=== PATIENT | female | born 1945 | race Caucasian/White ===

== ENCOUNTER 2017-11-20 17:35 | Observation (INO) | payer OTHER ==
[2017-11-20] MEDS ORDERED: ASPIRIN 81 MG CHEWABLE TABLET ONE (18:16)
[2017-11-20 18:33] LABS: Absolute Lymphocytes (CBC) 2.4 K/uL (0.7-4.9); Absolute Monocytes 0.5 K/uL (0.1-1.3); Absolute Neutrophil 2.7 K/uL (1.8-8.0); Basophils % 0.9 % (0-1.3); Eosinophils % 1.2 % (0-4.4); Hematocrit 41.8 % (36.0-45.0); Lymphocytes % 42.4 % (15.3-44.8); MCH 32.6 pg (27.0-35.0); MCV 95.3 fL (80-100); MPV 10.1 fL (7.6-11.3); RBC Red Blood Cell Count 4.38 M/uL (3.86-4.86)
[2017-11-20 18:37] LABS: Protime INR 0.96
--- NOTE | 2017-11-20 18:45 | RAD REPORT ---
EXAM DESCRIPTION: RAD - Chest Single View - 11/20/2017 6:21 pm CLINICAL HISTORY: Chest pain, shortness of breath COMPARISON: August 2014 TECHNIQUE: AP portable chest image was obtained 1808 hours . FINDINGS: No peripheral mass, consolidation or failure finding. Chronic interstitial lung disease is present not substantially different from the comparison. Heart and vasculature are normal. No measur able pleural effusion and no pneumothorax. No gross bony abnormality seen. No acute aortic findings s uspected. IMPRESSION: No acute cardiopulmonary process. Chronic interstitial lung disease is present similar to comparison.
[2017-11-20 18:54] LABS: ALT/SGPT 36 U/L (12-78); AST/SGOT 32 U/L (15-37); Albumin 3.3 g/dL (3.4-5.0); Alkaline Phosphatase 80 U/L (45-117); BUN Blood Urea Nitrogen 22 mg/dL (7-18); Bicarbonate 30 mmol/L (21-32); Bilirubin Direct 0.1 mg/dL (0-0.2); Bilirubin Total 0.4 mg/dL (0.2-1.0); CKMB Creatine Kinase MB < 1.0 ng/mL (0.3-3.6); Creatine Phosphokinase 28 U/L (26-192); Glucose Level 94 mg/dL (74-106); Magnesium 2.2 mg/dL (1.8-2.4); NT PRO-BNP 734 pg/mL (<125); Potassium 4.5 mmol/L (3.5-5.1); Protein, Total 6.8 g/dL (6.4-8.2); Sodium Level 140 mmol/L (136-145); Troponin (Emerg Dept Use Only) < 0.02 ng/mL (0.0-0.045)
--- NOTE | 2017-11-20 19:10 | EKG ---
Test Date: 2017-11-20 Test Time: 17:50:02 User Interface Designer: CLIVE MEASUREMENT RESULTS: Intervals: Rate: 54 OK: 96 QRSD: 74 QT: 418 QTc: 396 Wilmore: P: -19 OK: 96 QRS: -5 T: 22 INTERPRETIVE STATEMENTS: Sinus bradycardia with short OK Otherwise normal ECG Compared to ECG 08/14/2014 12:25:15 Short OK interval now present Sinus rhythm no longer present Electronically Signed On 11-20-17 19:09:37 CDT by Tho Joseph
--- NOTE | 2017-11-20 19:29 | ER ---
Nurse's Notes [facility] Name: Caitlin Howard Age: 72 yrs Sex: Female : 1945 Arrival Date: 11/20/2017 Time: 17:37 Bed 6 Private MD: LIZ CARBAJAL Diagnosis: Chest pain, unspecified;Dyspnea Presentation: 11/20 17:42 Presenting complaint: Patient states: midsternal CP that started with the SOB. sv states: pt c/o SOB around 1300 today and was having hypotension at home. c/o lethargy. Transition of care: patient was not received from another setting of care. Onset of symptoms was November 20, 2017 at 13:00. Care prior to arrival: None. 17:42 Method Of Arrival: Ambulatory sv 17:42 Acuity: STEPHIE 3 sv 20:55 Risk Assessment: Do you want to hurt yourself or someone else? Patient reports no fc desire to harm self or others. Initial Sepsis Screen: Does the patient meet any 2 criteria? No. Patient's initial sepsis screen is negative. Does the patient have a suspected source of infection? No. Patient's initial sepsis screen is negative. 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 - Social history:: Smoking status: Patient/guardian denies using tobacco. - Ebola Screening: : No symptoms or risks identified at this time. Screenin:47 Abuse screen: Denies threats or abuse. Denies injuries from another. Nutritional hb screening: No deficits noted. Tuberculosis screening: No symptoms or risk factors identified. Fall Risk None identified. Assessment: 18:25 General: Appears in no apparent distress. Behavior is calm, cooperative. Pain: hb Complains of pain in chest Pain does not radiate. Pain currently is 3 out of 10 on a pain scale. Quality of pain is described as pressure. Neuro: Level of Consciousness is awake, alert, obeys commands, Oriented to person, place, time, situation. Cardiovascular: Heart tones S1 S2 present Capillary refill < 3 seconds Patient's skin is warm and dry. Rhythm is regular. Respiratory: Airway is patent Trachea midline Respiratory effort is even, unlabored, Respiratory pattern is regular, symmetrical, Breath sounds are clear bilaterally. GI: No signs and/or symptoms were reported involving the gastrointestinal system. : No signs and/or symptoms were reported regarding the genitourinary system. EENT: No signs and/or symptoms were reported regarding the EENT system. Derm: No signs and/or symptoms reported regarding the dermatologic system. Skin is intact, is healthy with good turgor. Musculoskeletal: No signs and/or symptoms reported regarding the musculoskeletal system. 19:00 General: Appears in no apparent distress. comfortable, Behavior is calm, cooperative, fc appropriate for age. Pain: Denies pain. Neuro: Level of Consciousness is awake, alert, obeys commands, Oriented to person, place, time, situation. Cardiovascular: Denies chest pain at this time Heart tones S1 S2 Capillary refill < 3 seconds Rhythm is regular. Respiratory: Airway is patent Respiratory effort is even, unlabored, Respiratory pattern is regular, symmetrical, Breath sounds are clear bilaterally. GI: No deficits noted. : No deficits noted. EENT: No deficits noted. Derm: Skin is pink, warm \T\ dry. Musculoskeletal: Circulation, motion, and sensation intact. Capillary refill < 3 seconds, Range of motion: intact in all extremities. 19:25 Reassessment: Darleen AMOR in to see and discuss admission with pt. fc 20:30 Reassessment: No changes from previously documented assessment. Patient and/or family fc updated on plan of care and expected duration. Pain level reassessed. Patient is alert, oriented x 3, equal unlabored respirations, skin warm/dry/pink. Pt is pending admission to 2nd floor. 21:30 Reassessment: No changes from previously documented assessment. Patient and/or family fc updated on plan of care and expected duration. Pain level reassessed. Patient is alert, oriented x 3, equal unlabored respirations, skin warm/dry/pink. Pt with no overall change in condition. 21:55 Reassessment: report called to 2nd floor. fc Vital Signs: 17:43 BP 161 / 72; Pulse 55; Resp 18; Temp 98.3; Pulse Ox 100% ; Weight 52.62 kg; Height 5 sv ft. 4 in. (162.56 cm); 19:00 BP 159 / 72; Pulse 52; Resp 20; Pulse Ox 100% on R/A; Pain 0/10; fc 20:00 BP 161 / 71; Pulse 52; Resp 16; Pulse Ox 100% on R/A; Pain 0/10; fc 20:45 BP 151 / 68; Pulse 53; Resp 16; Pulse Ox 97% on R/A; Pain 0/10; fc 21:54 BP 160 / 80; Pulse 54; Resp 16; Temp 98.2(O); Pulse Ox 100% on R/A; Pain 0/10; fc 17:43 Body Mass Index 19.91 (52.62 kg, 162.56 cm) sv ED Course: 17:37 Patient arrived in ED. sb2 17:37 LIZ CARBAJAL is Private Physician. sb2 17:42 Triage completed. sv 17:44 Arm band placed on left wrist. sv 17:54 [facility]uel[facility]C [facility] kb 17:54 Jonel Barahona MD is Attending Physician. kb 18:05 EKG done, by earth moving technician. reviewed by Jonel Barahona MD. 3 18:18 X-ray completed. Portable x-ray completed in exam room. Patient tolerated procedure ml well. 18:19 XRAY Chest (1 view) In Process Unspecified. EDMS 18:25 Dorie Kim RN is Primary Nurse. hb 18:25 Patient has correct armband on for positive identification. Placed in gown. Bed in low hb position. Call light in reach. Side rails up X 1. 18:25 Inserted saline lock: 22 gauge in left antecubital area, using aseptic technique. Blood hb collected. 19:28 Jonel Juárez MD is Hospitalizing Provider. kb 20:18 Primary Nurse role handed off by Dorie Kim, RN rg2 20:54 No provider procedures requiring assistance completed. Patient admitted, IV remains in fc place. Administered Medications: 18:27 Drug: Aspirin Chewable Tablet 324 mg Route: PO; hb 20:57 Follow up: Response: No adverse reaction; No change in condition fc Outcome: 19:28 Decision to Hospitalize by Provider. kb 20:55 Condition: good fc 20:55 Discharge instructions given to patient, significant other, Instructed on the need for admit, Demonstrated understanding of instructions. 21:56 Admitted to Tele accompanied by tech, room 225, with chart, Report called to Lorrie Irene fc 22:11 Patient left the ED. fc Signatures: Dispatcher [employer] EDDarleen Shea, OXANA-Chanda TECHNICIAN HELPER INSTRUMENT-Merlin Melchor rg2 Yoly Orourke RN RN sv Chretien, Felicia, RN RN fc Lopez, Melissa ml Baxter, Heather, RN RN Pooja Zamudio 2 Andree Webster sm3 Corrections: (The following items were deleted from the chart) 17:44 17:42 Presenting complaint: states: pt c/o SOB around 1300 today and was having sv hypotension at home. c/o lethargy. sv
--- NOTE | 2017-11-20 19:29 | EDPHYS ---
Physician Documentation [facility] Name: Caitlin Howard Age: 72 yrs Sex: Female : 1945 Arrival Date: 11/20/2017 Time: 17:37 Bed 6 Private MD: LIZ CARBAJAL ED Physician Jonel Barahona HPI: 11/20 19:08 This 72 yrs old Female presents to ER via Ambulatory with complaints of Blood kb Pressure Problem - LOW, Shortness Of Breath. 19:08 The patient or guardian reports chest pain that is located primarily in the anterior kb chest wall, left. Onset: yesterday. The pain does not radiate. Associated signs and symptoms: Pertinent positives: shortness of breath, Pertinent negatives: abdominal pain, cough, diaphoresis, dizziness, headache, lower extremity pain, lower extremity swelling, lightheadedness, nausea, near syncope, palpitations, recent travel, syncope, vomiting. The chest pain is described as a pressure. Duration: The patient or guardian reports a single episode, that is now resolved. Modifying factors: The symptoms are alleviated by nothing. the symptoms are aggravated by nothing. Severity of pain: At its worst the pain was mild moderate in the emergency department the pain has resolved. The patient has not experienced similar symptoms in the past. The patient has not recently seen a physician. Pt reports she had chest pain, shortness of breath and just not feeling well earlier today. started checking BP and it was running 70s/40s. Started coming up prior to arrival. Dr Carbajal is out of town, but his nurse told them to come to ER for evaluation. Pt reports chest pain and shortness of breath have resolved.. 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 - Social history:: Smoking status: Patient/guardian denies using tobacco. - Ebola Screening: : No symptoms or risks identified at this time. ROS: 19:07 Constitutional: Negative for fever, chills, and weight loss, Abdomen/GI: Negative for kb abdominal pain, nausea, vomiting, diarrhea, and constipation, Back: Negative for injury and pain, : Negative for injury, bleeding, discharge, and swelling, MS/Extremity: Negative for injury and deformity, Skin: Negative for injury, rash, and discoloration, Neuro: Negative for headache, weakness, numbness, tingling, and seizure. 19:07 Cardiovascular: Positive for chest pain, Negative for edema, orthopnea, palpitations, paroxysmal nocturnal dyspnea. 19:07 Respiratory: Positive for shortness of breath, Negative for cough, dyspnea on exertion, hemoptysis, orthopnea, pleurisy, sputum production, wheezing. Exam: 19:07 Constitutional: This is a well developed, well nourished patient who is awake, alert, kb and in no acute distress. Head/Face: Normocephalic, atraumatic. Chest/axilla: Normal chest wall appearance and motion. Nontender with no deformity. No lesions are appreciated. Cardiovascular: Regular rate and rhythm with a normal S1 and S2. No gallops, murmurs, or rubs. Normal PMI, no JVD. No pulse deficits. Respiratory: Lungs have equal breath sounds bilaterally, clear to auscultation and percussion. No rales, rhonchi or wheezes noted. No increased work of breathing, no retractions or nasal flaring. Abdomen/GI: Soft, non-tender, with normal bowel sounds. No distension or tympany. No guarding or rebound. No evidence of tenderness throughout. Back: No spinal tenderness. No costovertebral tenderness. Full range of motion. Skin: Warm, dry with normal turgor. Normal color with no rashes, no lesions, and no evidence of cellulitis. MS/ Extremity: Pulses equal, no cyanosis. Neurovascular intact. Full, normal range of motion. Neuro: Awake and alert, GCS 15, oriented to person, place, time, and situation. Cranial nerves II-XII grossly intact. Motor strength 5/5 in all extremities. Sensory grossly intact. Cerebellar exam normal. Normal gait. Vital Signs: 17:43 BP 161 / 72; Pulse 55; Resp 18; Temp 98.3; Pulse Ox 100% ; Weight 52.62 kg; Height 5 sv ft. 4 in. (162.56 cm); 19:00 BP 159 / 72; Pulse 52; Resp 20; Pulse Ox 100% on R/A; Pain 0/10; fc 20:00 BP 161 / 71; Pulse 52; Resp 16; Pulse Ox 100% on R/A; Pain 0/10; fc 20:45 BP 151 / 68; Pulse 53; Resp 16; Pulse Ox 97% on R/A; Pain 0/10; fc 21:54 BP 160 / 80; Pulse 54; Resp 16; Temp 98.2(O); Pulse Ox 100% on R/A; Pain 0/10; fc 17:43 Body Mass Index 19.91 (52.62 kg, 162.56 cm) sv MDM: 17:54 Patient medically screened. kb 19:07 The patient was given aspirin in the Emergency Department. Data reviewed: vital signs, kb nurses notes. Data interpreted: Pulse oximetry: on room air is 100 %. Interpretation: normal. 19:28 Counseling: I had a detailed discussion with the patient and/or guardian regarding: the kb historical points, exam findings, and any diagnostic results supporting the discharge/admit diagnosis, lab results, radiology results, the need for further work-up and treatment in the hospital. 11/20 17:59 Order name: Basic Metabolic Panel; Complete Time: 18:58 kb 11/20 17:59 Order name: CBC with Diff; Complete Time: 18:37 kb 11/20 17:59 Order name: Ckmb; Complete Time: 18:58 kb 11/20 17:59 Order name: CPK; Complete Time: 18:58 kb 11/20 17:59 Order name: LFT's; Complete Time: 18:58 kb 11/20 17:59 Order name: Magnesium; Complete Time: 18:58 kb 11/20 17:59 Order name: NT PRO-BNP; Complete Time: 18:58 kb 11/20 17:59 Order name: PT-INR; Complete Time: 18:44 kb 11/20 17:59 Order name: Ptt, Activated; Complete Time: 18:44 kb 11/20 17:59 Order name: Troponin (emerg Dept Use Only); Complete Time: 18:58 kb 11/20 17:59 Order name: XRAY Chest (1 view); Complete Time: 18:49 kb 11/20 17:59 Order name: EKG; Complete Time: 17:59 kb 12 19:52 Order name: Urine Dipstick--Ancillary (enter results); Complete Time: 20:07 mt 11/20 17:59 Order name: Cardiac monitoring; Complete Time: 18:07 kb 11/20 17:59 Order name: EKG - Nurse/Tech; Complete Time: 18:07 kb 11/20 17:59 Order name: IV Saline Lock; Complete Time: 18:08 kb 11/20 17:59 Order name: Labs collected and sent; Complete Time: 18:08 kb 11/20 17:59 Order name: O2 Per Protocol; Complete Time: 18:08 kb 11/20 17:59 Order name: O2 Sat Monitoring; Complete Time: 18:08 kb 11/20 17:59 Order name: Urine Dipstick-Ancillary (obtain specimen); Complete Time: 20:43 kb 11/20 19:22 Order name: Vital Signs; Complete Time: 20:43 kb Administered Medications: 18:27 Drug: Aspirin Chewable Tablet 324 mg Route: PO; hb 20:57 Follow up: Response: No adverse reaction; No change in condition fc Disposition: 11/20/17 19:28 Hospitalization ordered by Jonel Juárez for Observation. Preliminary diagnosis are Chest pain, unspecified, Dyspnea. - Bed requested for Telemetry/MedSurg (observation). - Status is Observation. fc - Condition is Stable. - Problem is new. - Symptoms have improved. UTI on Admission? No Addendum: 11/24/2017 18:21 Co-signature as Attending Physician, Jonel Barahona MD. m a2 Signatures: Dispatcher [employer] EDDarleen Shea, INTERLIBRARY LOAN SERVICES LIBRARIAN-C INTERLIBRARY LOAN SERVICES LIBRARIAN-Yoly Lala RN Malgorzata Whalen RN RN dw Chretien, Felicia, RN RN Dorie Kim RN RN Jonel Barahona MD MD in2 Corrections: (The following items were deleted from the chart) 11/20 19:36 19:28 Hospitalization Ordered by Jonel Juárez MD for Observation. Preliminary dw diagnosis is Chest pain, unspecified; Dyspnea. Bed requested for Telemetry/MedSurg (observation). Status is Observation. Condition is Stable. Problem is new. Symptoms have improved. UTI on Admission? No. kb 22:11 19:36 11/20/2017 19:28 Hospitalization Ordered by Jonel Juárez MD for Observation. fc Preliminary diagnosis is Chest pain, unspecified; Dyspnea. Bed requested for Telemetry/MedSurg (observation). Status is Observation. Condition is Stable. Problem is new. Symptoms have improved. UTI on Admission? No. dw
[2017-11-20 20:06] LABS: Urine Blood NEGATIVE (NEG); Urine Glucose NEGATIVE (NEG); Urine Protein NEGATIVE (NEG); Urine pH 8.5 (5.0-7.0)
[2017-11-20] MEDS ORDERED: MORPHINE 4 MG/ML SYR IV PRN (21:22)
[2017-11-20] MEDS ORDERED: ACETAMINOPHEN 500 MG TAB PO PRN (21:22)
[2017-11-20] MEDS ORDERED: ALPRAZOLAM 0.25 MG TABLET PO PRN (21:22)
[2017-11-20 22:32] VITALS: BMI 18.8
[2017-11-21 03:33] VITALS: O2SAT 99
--- NOTE | 2017-11-21 05:09 | P.HP ---
Certification for Inpatient Patient admitted to: Observation With expected LOS: <2 Midnights Patient will require the following post-hospital care: None Practitioner: I am a practitioner with admitting privileges, knowledge of patient current condition, hospital course, and medical plan of care. Services: Services provided to patient in accordance with Admission requirements found in Title 42 Section 412.3 of the Code of Federal Regulations Patient History Date of Service: 11/20/17 Reason for admission: Chest pain rule out acute coronary syndrome History of Present Illness: Patient is a 72-year-old female came into the hospital with complaints of hypotension. Patient was also short of breath. Patient complaining of pain in the anterior side of the chest: No radiation of the chest pain. Patient also has some shortness of breath associated with this symptom. Patient's symptoms have pretty much resolved by the time patient came into the emergency room. Patient has been treated for a meningioma recently, but the surgery had to be stopped because patient became severely bradycardic. The surgery was aborted, but patient has continued to do well. Patient does have headaches but otherwise no other significant symptoms. Patient respiratory status is stable. Patient came into the emergency room for further evaluation. Allergies codeine [Codeine] Allergy (Unknown, Verified 11/20/17 20:41) Unknown Sulfa (Sulfonamide Antibiotics) Allergy (Unknown, Verified 11/20/17 20:41) Unknown Wasps Allergy (Uncoded 11/20/17 20:41) Unknown Home Medications: Atenolol [Tenormin] 25 mg PO DAILY 11/20/17 Cholecalciferol (Vitamin D3) [Vitamin D3] 5,000 unit PO DAILY 11/20/17 Divalproex Sodium [Depakote ER] 500 mg PO TID 11/20/17 Magnesium Oxide [Magnesium] 250 mg PO DAILY 11/20/17 Memantine HCl 10 mg PO BID 11/20/17 Thyroid,Pork [Assignment Editor Thyroid] 15 mg PO DAILY 11/20/17 Tizanidine HCl 4 mg PO Q6HP PRN 11/20/17 Tramadol HCl [Ultram] 100 mg PO BEDTIME 11/20/17 Trazodone HCl 12.5 mg PO BEDTIME 11/20/17 Turmeric Root Extract [Turmeric] 500 mg PO DAILY 11/20/17 - Past Medical/Surgical History Has patient received pneumonia vaccine in the past: Yes Diabetic: No -: brain tumor - beign -: hypothyroid -: hypertension -: headaches -: sinus problems -: Throat Surgery -: Back Surgery -: ngoc -: attempted brain tumor removal without success - Family History Father Medical History: Heart disease Sister Medical History: Heart disease Brother Medical History: Lung disease, Cancer, Kidney disease - Social History Smoking Status: Never smoker Alcohol use: No CD- Drugs: No Caffeine use: No Place of Residence: Home Review of Systems 10-point ROS is otherwise unremarkable Physical Examination - Vital Signs Temperature: 96.8 F Blood Pressure: 167/74 Pulse: 64 Respirations: 18 Pulse Ox (%): 100 - Physical Exam General: Alert, In no apparent distress, Oriented x3 HEENT: Atraumatic, PERRLA, Mucous membr. moist/pink, EOMI, Sclerae nonicteric Neck: Supple, 2+ carotid pulse no bruit, No LAD, Without JVD or thyroid abnormality Respiratory: Clear to auscultation bilaterally, Normal air movement Cardiovascular: Regular rate/rhythm, Normal S1 S2, No murmurs Gastrointestinal: Normal bowel sounds, Soft and benign, Non-distended, No tenderness Musculoskeletal: No clubbing, No swelling, No tenderness Integumentary: No rashes Neurological: Normal gait, Normal speech, Normal strength at 5/5 x4 extr, Normal tone, Sensation intact, Cranial nerves 3-12 intact, Normal affect Lymphatics: No axilla or inguinal lymphadenopathy - Studies Laboratory Data (last 24 hrs) 11/20/17 18:20: PT 11.3, INR 0.96, APTT 30.3 18 18:20: WBC 5.6, Hgb 14.3, Hct 41.8, Plt Count 174 11/20/17 18:20: Sodium 140, Potassium 4.5, BUN 22 H, Creatinine 1.00, Glucose 94 , Magnesium 2.2, Total Bilirubin 0.4, AST 32, ALT 36, Alkaline Phosphatase 80 Assessment & Plan - Plan Assessment: 1. Altered mental status 2. Chest discomfort/chest pain rule out acute coronary syndrome 3. History of hypertension and hypothyroidism 4. Acute on chronic renal insufficiency Plan: 1. Serial troponins and EKG 2. Appreciate Cardiology consultation 3. Echocardiogram and stress test if cardiology is agreeable; also gently hydrate and arrange for possible transfer in the morning to inpatient facility 4. Anti-platelet therapy, anti coagulation, beta-beka, statin, and O2 as needed 5. IV morphine for pain 6. Monitor renal function closely 7. Possible discharge home if labs are stable 8. GI and DVT prophylaxis Discharge Plan: Home Plan to discharge in: 24 Hours - Advance Directives Does patient have a Living Will: No Does patient have a Durable POA for Healthcare: No - Code Status/Comfort Care Code Status Assessed: Yes Code Status: Full Code Critical Care: No Time Spent Managing PTS Care (In Minutes): 50
[2017-11-21] MEDS ORDERED: REGADENOSON 0.4 MG/5 ML SYR IV ONE (07:53)
[2017-11-21] MEDS ORDERED: ENOXAPARIN 40 MG/0.4 ML SQ SCH (09:00)
[2017-11-21] MEDS ORDERED: ASPIRIN EC 81 MG TAB PO SCH (09:00)
[2017-11-21] MEDS ORDERED: METOPROLOL TAR 50 MG TAB PO SCH (09:00)
--- NOTE | 2017-11-21 11:12 | RAD REPORT ---
EXAM DESCRIPTION: NM - Rest Stress Cardiac Imaging - 11/21/2017 11:05 am CLINICAL HISTORY: CP Chest pain. COMPARISON: No comparisons TECHNIQUE: The patient was administered approximately 10mCi of Tc 99m Sestamibi prior to resting SPE CT imaging of the heart. The patient was then administered approximately 30 mCi of Tc 99m Sestamibi f ollowing exercise or pharmacologic stress. Multiplanar SPECT images were reviewed. FINDINGS: No stress induced ischemic defect is seen to suggest stress induced ischemia. No fixed def ect is seen to suggest hibernating myocardium or scarred myocardium. The end diastolic volume is 50 ml, the end systolic volume is 15 ml, and the ejection fraction is 69 %. IMPRESSION: No stress induced ischemia.
[2017-11-21] MEDS ORDERED: TIZANIDINE 4 MG TABLET PO PRN (11:16)
--- NOTE | 2017-11-21 11:52 | ECHO ---
HEIGHT: 5 ft 4 in WEIGHT: 109 lb 8 oz DATE OF STUDY: 11/21/[address]: Jonel Juárez MD 2-DIMENSIONAL: YES M.MODE: YES DOPPLER: YES COLOR FLOW: YES TDS: NO PORTABLE: NO DEFINITY: NO BUBBLE STUDY: NO DIAGNOSIS: CHEST PAIN/ RULE OUT ACUTE CORONARY SYNDROME CARDIAC HISTORY: CATHERIZATION: NO SURGERY: NO PROSTHETIC VALVE: NO PACEMAKER: NO MEASUREMENTS (cm) DIASTOLIC (NORMALS) SYSTOLIC (NORMALS) IVSd 0.8 (0.6-1.2) LA Diam 2.4 (1.9-4.0) LVEF 69% LVIDd 3.2 (3.5-5.7) LVIDs 2.0 (2.0-3.5) %FS 37% LVPWd 1.1 (0.6-1.2) Ao Diam 2.0 (2.0-3.7) 2 DIMENSIONAL ASSESSMENT: RIGHT ATRIUM: NORMAL LEFT ATRIUM: NORMAL RIGHT VENTRICLE: NORMAL LEFT VENTRICLE: NORMAL TRICUSPID VALVE: NORMAL MITRAL VALVE: MITRAL ANNULAR CALCIFICATION PULMONIC VALVE: NORMAL AORTIC VALVE: NORMAL PERICARDIAL EFFUSION: NONE AORTIC ROOT: NORMAL LEFT VENTRICULAR WALL MOTION: NORMAL. DOPPLER/COLOR FLOW: NORMAL. COMMENTS: MITRAL ANNULAR CALCIFICATION. FREDERIC LEFT VENTRICULAR SIZE AND FUNCTION. NO WALL MOTION ABNORMALITY. NO EFFUSION. TECHNOLOGIST: JACEK TREVINO
--- NOTE | 2017-11-21 12:00 | TREADPHA ---
DX: CHEST PAIN Date of Study: 11/21/17 Ht: 5 4 Wt: 109 lb 8 oz Consulting Physician: BRITTNI MEDICATIONS: TYLENOL, XANAX, ASPIRIN, LOVENOX, LOPRESSOR HISTORY: 72 YEAR OLD FEMALE WITH COMPLAINTS OF CHEST PAIN. MEDICAL HISTORY OF LOW BLOOD PRESSURE, SINUS TUMOR PHYSICIAL EXAMINATION: RESTING B.P.: 190/78 RESTING H.R.: 57 RESTING EKG: NORMAL PROTOCOL: LEXISCAN EXERCISE TIME: 3:30 B.P. AT PEAK STRESS: 143/67 IMPRESSION: LEXISCAN INJECTED, CARDIOLITE INJECTED, PER PROTOCOL. SEE NUCLEAR MEDICINE REPORT. NO SUPRA VENTRICULAR TACHYCARDIA, NO VENTRICULAR TACHYCARDIA, NO PREMATURE VENTRICULAR COMPLEXES. CHEST PAIN 4/10 THROUGHOUT STRESS.
[2017-11-21] MEDS ORDERED: DIVALPROEX ER 250 MG TAB PO SCH (14:00)
[2017-11-21 14:05] VITALS: BP 157/74; TEMP 98.7
--- NOTE | 2017-11-21 18:45 | CON ---
Date of Consultation: 11/21/2017 Admitted on 11/20/[address] Juárez's service. I saw the patient on 11/21/2017. Reason For Consultation: Shortness of breath and hypotension. History Of Present Illness: Ms. Howard is a 72-year-old woman. She was asymptomatic, actually had some slight shortness of breath, but she stated her blood pressure was measured by her and w as low. When she came to the emergency room, her pressure was 169/74. She had no chest pain. No na usea, vomiting, diaphoresis, PND, orthopnea, pedal edema, palpitation, or syncope. Normal chest x-ra y. Normal EKG. Normal troponin. BNP was elevated at 674. Past Medical History: Includes sinus tumor, meningioma, hypertension. Allergies: INCLUDE SULFA AND CODEINE. Medications: At home include atenolol, Depakote, and thyroid. Review of Systems: Negative. Social History: Negative. Family History: Noncontributory. Physical Examination: Vital Signs: Stable. Afebrile. Sinus rhythm. HEENT: Negative. Neck: Supple with no bruit. Chest: Clear. Cardiac: Revealed a regular rhythm and rate without any murmurs, gallops, or rubs. Abdomen: Benign. Extremities: Revealed no clubbing, cyanosis, or edema. Assessment And Plan: 1.History of meningioma that failed surgery. 2.History of sinus tumor. 3.Hypertension. 4.Shortness of breath. Negative chest x-ray, EKG. Elevated troponin. An echocardiogram is pending . Lexiscan is pending. We will see what those show prior to making final decisions. CHARLINE/JENELLE Voice ID: [id number] Report ID: [id number]
[2017-11-21] MEDS ORDERED: MEMANTINE HCL 10 MG TABLET PO SCH (21:00)
[2017-11-21] MEDS ORDERED: TRAZODONE 50 MG TABLET PO SCH (21:00)
[2017-11-21] MEDS ORDERED: TRAMADOL HCL 50 MG TAB PO SCH (21:00)
[2017-11-22] MEDS ORDERED: THYROID 30 MG TAB PO SCH (06:00)
[2017-11-22] MEDS ORDERED: MAGNESIUM OXIDE 400 MG TAB PO SCH (09:00)
--- NOTE | 2017-11-22 15:42 | DS ---
Date of Discharge: 11/21/2017 Tractor Mechanic Helper: Dr. Joseph with Cardiology. Procedures: Cardiac stress test on 11/21/2017 showed no stress-induced ischemia. Discharge Diagnoses: 1.Altered mental status, resolved. 2.Chest pain. Acute coronary syndrome ruled out. 3.Essential hypertension, stable. 4.Hypothyroidism, stable. 5.Acute on chronic renal insufficiency, stable. 6.Failure to thrive. BMI 18. Hospital Course: The patient is a 72-year-old female, comes in with complaints of low blood pressure and shortness of breath, having some chest tightness and radiation to the left arm. The patient als o has history of meningioma with recent surgery that was canceled due to bradycardia. The patient wa s admitted to the hospital to rule out ACS. Her workup revealed negative troponin levels x3. ACS wa s ruled out. Her chest pain resolved essentially in the ER. Her lipid panel was normal. The patien t was seen by Cardiology, who recommended stress test, which was negative for acute stress induced is chemia. Her echocardiogram showed EF of 69% and mitral annular calcification. No wall motion abnorm ality or effusion. The patient was then cleared for discharge from Cardiology standpoint. Sent home in a stable condition. Medications: As per medication reconciliation list. Followup: Follow up with primary care physician in 2-3 days. Follow up with assistant center manager, Dr. Thi burgess in 2 weeks for possible event monitoring. Return to ER for worsening condition. Diet: Heart healthy. Activity: As tolerated. Physical Examination: General: Awake, alert, oriented, in no acute distress. CV: S1, S2. No murmurs. Respiratory: Moving air well bilaterally. Abdomen: Abdomen is soft, nontender, nondistended. Positive bowel sounds. Extremities: No clubbing, cyanosis, edema. SA/MODL Voice ID: [id number] Report ID: [id number]
== END 2017-11-21 16:47 | disposition home or self-care (01) ==
LOC: ER 17:35 → ERHOLD 19:54 → 2ND 22:04
PROVIDERS: ADMIT Hospitalist; ATTEND Hospitalist
DX: R41.82 Altered mental status, unspecified (principal); R07.9 Chest pain, unspecified; I12.9 Hypertensive chronic kidney disease with stage 1 through stage 4 chronic kidney disease, or unspecified chronic kidney disease; N18.9 Chronic kidney disease, unspecified; N17.9 Acute kidney failure, unspecified; E03.9 Hypothyroidism, unspecified; R62.7 Adult failure to thrive; Z88.2 Allergy status to sulfonamides; D32.9 Benign neoplasm of meninges, unspecified
CPT/HCPCS: 36415; 71045; 78452; 80048; 80061; 80076; 81003; 82550; 82553; 82962 ×2; 83735; 83880; 84484 ×3; 85025; 85610; 85730; 93005; 93017; 93306; 99285; A9500; G0378 ×2; J1650; J2785

== ENCOUNTER 2018-04-07 16:13 | Observation (INO) | payer OTHER ==
--- OUTSIDE RECORDS SUMMARY | 2018-04-07 16:19 | XMS REPORT ---
:1945 [facility] Address [address] [place] [address] [place] [id number] Care Team Providers Name Role Phone Unavailable Unavailable Unavailable Problems This patient has no known problems. Allergies, Adverse Reactions, Alerts This patient has no known allergies or adverse reactions. Medications This patient has no known medications.
[2018-04-07] MEDS ORDERED: ONDANSETRON 4 MG/2 ML VIAL ONE (17:15)
[2018-04-07] MEDS ORDERED: FENTANYL CITR 100 MCG/2 ML ONE (17:15)
[2018-04-07] MEDS ORDERED: NA CHLORIDE 0.9% 1,000 ML ONE (17:15)
[2018-04-07] MEDS ORDERED: DEXAMETHASONE 4 MG/ML VIAL ONE (17:17)
--- NOTE | 2018-04-07 17:21 | RAD REPORT ---
EXAM DESCRIPTION: CT - Head Brain Wo Cont - 04/07/2018 5:10 pm CLINICAL HISTORY: HEADACHE History of brain tumor. COMPARISON: Head C Spine Mpr Wo Con dated 04/28/2017 TECHNIQUE: All CT scans are performed using dose optimization technique as appropriate and may inclu de automated exposure control or mA/KV adjustment according to patient size. FINDINGS: No intracranial hemorrhage, hydrocephalus or extra-axial fluid collection.Anterior falx ma ss is again noted measuring 27 x 24 mm, unchanged. This most likely represents a meningioma. Full ass essment is limited on noncontrast CT study.No midline shift is seen. Mild generalized brain atrophy i s present with mild periventricular and deep white matter chronic microvascular ischemic changes. The paranasal sinuses and mastoids are clear. Prior right-sided ronn holes are noted. No acute calvar ial fracture. IMPRESSION: Anterior falx slightly hyperdense extra-axial mass is again noted, unchanged, most likel y representing a meningioma. This can be confirmed with MR imaging of the brain with contrast clinic ally needed. No acute intracranial finding is demonstrated
[2018-04-07 17:59] LABS: Absolute Lymphocytes (CBC) 1.4 K/uL (0.7-4.9); Absolute Monocytes 0.6 K/uL (0.1-1.3); Absolute Neutrophil 8.5 K/uL (1.8-8.0); Basophils % 0.4 % (0-1.3); Lymphocytes % 13.6 % (15.3-44.8); MPV 8.9 fL (7.6-11.3); Monocytes % 5.3 % (3.3-12.3); RBC Red Blood Cell Count 3.56 M/uL (3.86-4.86)
--- NOTE | 2018-04-07 18:13 | RAD REPORT ---
EXAM DESCRIPTION: RAD - Chest Single View - 04/07/2018 6:05 pm CLINICAL HISTORY: Cough COMPARISON: November 2017 TECHNIQUE: AP portable chest image was obtained 1758 hours . FINDINGS: No peripheral mass or consolidation seen. Patient has chronic underlying interstitial lung disease that is accentuated by shallow inspiration. Heart size and vasculature also accentuated by t he shallow inspiration. Mild failure or volume overload could be obscured. Significant failure or vol ume overload doubtful. No measurable pleural effusion and no pneumothorax. No acute bony abnormality seen. No acute aortic findings suspected. IMPRESSION: Shallow inspiration film showing chronic interstitial lung disease accentuated by the lo w lung volumes. Adjusting for inspiration, chest is not substantially different from November 2017.
[2018-04-07 18:20] LABS: Protime INR 0.89
--- NOTE | 2018-04-07 18:23 | ER ---
Nurse's Notes [facility] Name: Caitlin Howard Age: 72 yrs Sex: Female : 1945 Arrival Date: 04/07/2018 Time: 16:16 Bed 15 Private MD: Diagnosis: Headache;Weakness-Elevated Troponin;Abnormal brain scan-NO CHANGES , MENINGIOMA Presentation: 04/07 16:18 Presenting complaint: Patient states: frontal headache, has hx of brain tumor. sv Transition of care: patient was not received from another setting of care. Onset of symptoms is unknown. Care prior to arrival: None. 16:18 Method Of Arrival: Wheelchair sv 16:18 Acuity: STEPHIE 4 sv 19:15 Risk Assessment: Do you want to hurt yourself or someone else? Patient reports no cc3 desire to harm self or others. Initial Sepsis Screen: Does the patient meet any 2 criteria? No. Patient's initial sepsis screen is negative. Does the patient have a suspected source of infection? No. Patient's initial sepsis screen is negative. Triage Assessment: 19:15 Headache History: The patient has had previous headaches and this one is different than cc3 previous episodes. 19:15 Pain: Also complains of no other associated symptoms. cc3 Historical: - Allergies: 16:19 Codeine; sv 16:19 Sulfa (Sulfonamide Antibiotics); sv - PMHx: 16:19 sinus tumor; sv - PSHx: 16:19 Cholecystectomy; sv - Immunization history:: Adult Immunizations unknown. - Family history:: not pertinent. - Social history:: Smoking status: unknown. - Ebola Screening: : No symptoms or risks identified at this time. Screenin:58 Abuse screen: Denies threats or abuse. Denies injuries from another. Nutritional jl7 screening: No deficits noted. Tuberculosis screening: No symptoms or risk factors identified. Fall Risk IV access (20 points). Ambulatory Aid- Crutches/Cane/Walker (15 pts). Gait- Weak (10 pts.). Total Diehl Fall Scale indicates High Risk Score (45 or more points). Fall prevention measures have been instituted. Side Rails Up X 2 Placed Close to Nursing Station Frequent Obs/Assessments Occuring Family Present and informed to notify staff if the need to leave the bedside As available patient and family educated on Fall Prevention Program and Strategies. Assessment: 16:30 General: Appears in no apparent distress. uncomfortable, Behavior is calm, cooperative, jl7 appropriate for age. Pain: Complains of pain in headache Pain does not radiate. Pain currently is 8 out of 10 on a pain scale. Pain began years ago. Is continuous. Neuro: Level of Consciousness is awake, alert, obeys commands. Cardiovascular: Patient's skin is warm and dry. Respiratory: Airway is patent Respiratory effort is even, unlabored, Respiratory pattern is regular, symmetrical. GI: No signs and/or symptoms were reported involving the gastrointestinal system. : No signs and/or symptoms were reported regarding the genitourinary system. EENT: No signs and/or symptoms were reported regarding the EENT system. Derm: Skin is pink, warm \T\ dry. Musculoskeletal: No signs and/or symptoms reported regarding the musculoskeletal system. 17:58 Reassessment: Patient appears in no apparent distress at this time. Patient and/or jl7 family updated on plan of care and expected duration. Pain level reassessed. Patient is alert, oriented x 3, equal unlabored respirations, skin warm/dry/pink. Reports decreased pain, rated 7/10 at this time. 18:29 Reassessment: Pt will be discharged once labs a completely resulted. jl7 18:51 Reassessment: Dr. Hand at bedside discussing plan of care. jl7 19:23 Reassessment: Patient appears in no apparent distress at this time. Patient and/or cc3 family updated on plan of care and expected duration. Pain level reassessed. Patient is alert, oriented x 3, equal unlabored respirations, skin warm/dry/pink. Received this female patient from morning shift ROB Rodríguez as a case of headache. With IV cannula gauge 22 at the right hand with ongoing IV fluid of NS at 125 mL/hr infusing well. 20:45 Reassessment: Patient appears in no apparent distress at this time. Patient and/or cc3 family updated on plan of care and expected duration. Pain level reassessed. Patient is alert, oriented x 3, equal unlabored respirations, skin warm/dry/pink. 21:43 Reassessment: Patient appears in no apparent distress at this time. Patient and/or cc3 family updated on plan of care and expected duration. Pain level reassessed. Patient is alert, oriented x 3, equal unlabored respirations, skin warm/dry/pink. Room available in 210, called for report but as per charge nurse Kiki the nurse who will receive will just call me back. 21:50 Reassessment: Report handed over to RN RODNEY Bush for continuity of care. cc3 22:05 Reassessment: Patient appears in no apparent distress at this time. Patient and/or cc3 family updated on plan of care and expected duration. Pain level reassessed. Patient is alert, oriented x 3, equal unlabored respirations, skin warm/dry/pink. Patient left ER for admission vitally stable by wheelchair with family escorted by aircraft launch and recovery technician Rohini. Vital Signs: 16:19 BP 128 / 61; Pulse 97; Resp 16; Temp 97.4; Pulse Ox 97% ; Weight 54.88 kg; Height 5 ft. sv 1 in. (154.94 cm); Pain 8/10; 17:58 BP 116 / 64; Pulse 76; Resp 16 S; Pulse Ox 96% on R/A; jl7 18:30 BP 97 / 51; Pulse 72; Resp 16 S; Pulse Ox 95% on R/A; Pain 7/10; jl7 19:09 BP 107 / 60; Pulse 67; Resp 19 S; Temp 98.3(O); Pulse Ox 96% on R/A; cc3 20:45 BP 120 / 65; Pulse 67; Resp 19 S; Pulse Ox 99% on R/A; cc3 21:50 BP 121 / 71; Pulse 71; Resp 20 S; Pulse Ox 100% on R/A; cc3 16:19 Body Mass Index 22.86 (54.88 kg, 154.94 cm) sv ED Course: 16:16 Patient arrived in ED. mr 16:19 Triage completed. sv 16:20 Arm band placed on. sv 16:26 Anne Rosenberg, RN is Primary Nurse. jl7 16:28 Gabe Hand MD is Attending Physician. haile 16:[address] jg6 17:09 CT completed. Patient tolerated procedure well. Patient moved back from CT. nj 17:10 CT Head Brain wo Cont In Process Unspecified. EDMS 17:22 EKG done, by sterile tech. reviewed by Gabe Hand MD. 3 17:25 Initial lab(s) drawn, by me, sent to lab. Urine collected: straight cath specimen, jl7 clear, Amount Returned: 300mL. Straight cath inserted, using sterile technique, 16 Fr. Specimen obtained. Returned clear yellow urine. Inserted saline lock: 22 gauge in right hand, using aseptic technique. Blood collected. 17:52 Urine Culture Sent. [facility] 17:58 Patient has correct armband on for positive identification. Bed in low position. Call jl7 light in reach. Side rails up X2. alarm security or surveillance monitor on. Pulse ox on. NIBP on. Warm blanket given. 18:06 XRAY Chest (1 view) In Process Unspecified. EDMS 18:22 Rufus Nix MD is Referral Physician. haile 18:50 Urine Dipstick--Ancillary (enter results) Sent. jl7 18:54 Jonel Juárez MD is Hospitalizing Provider. [facility] 22:05 No provider procedures requiring assistance completed. Patient admitted, IV remains in cc3 place. Administered Medications: 17:30 Drug: NS 0.9% 1000 ml Route: IV; Rate: 125 ml/hr; Site: right hand; jl7 17:31 Drug: Zofran 4 mg Route: IVP; Site: right hand; jl7 18:30 Follow up: Response: No adverse reaction jl7 17:36 Drug: fentaNYL (PF) 25 mcg Route: IVP; Site: right hand; jl7 18:30 Follow up: Response: No adverse reaction; Pain is decreased jl7 17:40 Drug: Decadron - Dexamethasone 10 mg Route: IVP; Site: right hand; jl7 18:30 Follow up: Response: No adverse reaction; Pain is decreased jl7 18:27 Drug: TORadol 30 mg Route: IVP; Site: right hand; jl7 19:36 Follow up: Response: No adverse reaction cc3 19:15 Drug: Aspirin 162 mg Route: PO; cc3 19:35 Follow up: Response: No adverse reaction cc3 21:30 Not Given (not needed so not given as per ROB Rosenberg): fentaNYL (PF) 25 mcg IVP oncecc3 Outcome: 18:22 Discharge ordered by . haile 18:59 Decision to Hospitalize by Provider. haile 21:50 Admitted to Med/surg accompanied by tech, family with patient, via wheelchair, room cc3 210, Report called to ROB Bush 21:50 Condition: stable 21:50 Instructed on the need for admit, Demonstrated understanding of instructions. 22:09 Patient left the ED. cc3 Signatures: Dispatcher [employer] Yoly Alberts, RN Gabe Pettit MD MD cha Rivera, Shazia mr Marcial, Marion Lucero 5 Anne Rosenberg RN RN jl7 Andree Webster 3 Pamela Whitlock 3 Rosi Stoner j6 Corrections: (The following items were deleted from the chart) 17:59 17:58 Fall Risk IV access (20 points). Total Diehl Fall Scale indicates No Risk (0-24 jl7 pts). jl7 18:00 17:52 Urine collected: clean catch specimen, clear, 5 7 19:25 19:23 Reassessment: Patient appears in no apparent distress at this time. Patient cc3 and/or family updated on plan of care and expected duration. Pain level reassessed. Patient is alert, oriented x 3, equal unlabored respirations, skin warm/dry/pink. Received this female patient from morning shift ROB Rodríguez as a case of headache. With IV cannula gauge 22 at the right hand saline locked. cc3
--- NOTE | 2018-04-07 18:24 | EDPHYS ---
Physician Documentation [facility] Name: Caitlin Howard Age: 72 yrs Sex: Female : 1945 Arrival Date: 04/07/2018 Time: 16:16 Bed 15 Private MD: ED Physician Gabe Hand HPI: 04/07 16:55 This 72 yrs old Female presents to ER via Wheelchair with complaints of haile Headache. 16:55 The patient complains of pain to the forehead, left temporal area and right temporal haile area. The patient describes the headache as constant. Onset: The symptoms/episode began/occurred 3 day(s) ago. Associated signs and symptoms: The patient has no apparent associated signs or symptoms. Severity of symptoms: At its worst the pain was moderate, in the emergency department the pain is unchanged. Headache History: The patient has had previous headaches and this one is similar to previous episodes. The patient has experienced similar episodes in the past, multiple times. 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 - Family history:: not pertinent. - Social history:: Smoking status: unknown. - Ebola Screening: : No symptoms or risks identified at this time. ROS: 16:55 Constitutional: Negative for fever, chills, and weight loss, Eyes: Negative for injury, haile pain, redness, and discharge, ENT: Negative for injury, pain, and discharge, Neck: Negative for injury, pain, and swelling, Cardiovascular: Negative for chest pain, palpitations, and edema, Respiratory: Negative for shortness of breath, cough, wheezing, and pleuritic chest pain, Abdomen/GI: Negative for abdominal pain, nausea, vomiting, diarrhea, and constipation, Back: Negative for injury and pain, : Negative for injury, bleeding, discharge, and swelling, MS/Extremity: Negative for injury and deformity, Skin: Negative for injury, rash, and discoloration, Psych: Negative for depression, anxiety, suicide ideation, homicidal ideation, and hallucinations, Allergy/Immunology: Negative for hives, rash, and allergies, Endocrine: Negative for neck swelling, polydipsia, polyuria, polyphagia, and marked weight changes, Hematologic/Lymphatic: Negative for swollen nodes, abnormal bleeding, and unusual bruising. 16:55 Neuro: Positive for headache. Exam: 16:55 Constitutional: This is a well developed, well nourished patient who is awake, alert, haile and in no acute distress. Head/Face: Normocephalic, atraumatic. Eyes: Pupils equal round and reactive to light, extra-ocular motions intact. Lids and lashes normal. Conjunctiva and sclera are non-icteric and not injected. Cornea within normal limits. Periorbital areas with no swelling, redness, or edema. ENT: Nares patent. No nasal discharge, no septal abnormalities noted. Tympanic membranes are normal and external auditory canals are clear. Oropharynx with no redness, swelling, or masses, exudates, or evidence of obstruction, uvula midline. Mucous membranes moist. Neck: Trachea midline, no thyromegaly or masses palpated, and no cervical lymphadenopathy. Supple, full range of motion without nuchal rigidity, or vertebral point tenderness. No Meningismus. Chest/axilla: Normal chest wall appearance and motion. Nontender with no deformity. No lesions are appreciated. Cardiovascular: Regular rate and rhythm with a normal S1 and S2. No gallops, murmurs, or rubs. Normal PMI, no JVD. No pulse deficits. Respiratory: Lungs have equal breath sounds bilaterally, clear to auscultation and percussion. No rales, rhonchi or wheezes noted. No increased work of breathing, no retractions or nasal flaring. Abdomen/GI: Soft, non-tender, with normal bowel sounds. No distension or tympany. No guarding or rebound. No evidence of tenderness throughout. Back: No spinal tenderness. No costovertebral tenderness. Full range of motion. Skin: Warm, dry with normal turgor. Normal color with no rashes, no lesions, and no evidence of cellulitis. MS/ Extremity: Pulses equal, no cyanosis. Neurovascular intact. Full, normal range of motion. Psych: Awake, alert, with orientation to person, place and time. Behavior, mood, and affect are within normal limits. 16:55 Neuro: Orientation: is normal, appropriate for stated age, no acute changes, Mentation: is normal, appropriate for stated age, no acute changes, Memory: is normal, appropriate for stated age, no acute changes, Cranial nerves: grossly normal, is grossly normal based on the patient's age, no acute changes, Motor: is normal, is grossly normal based on the patient's age, Gait: not tested. Babinski testing is normal. Vital Signs: 16:19 BP 128 / 61; Pulse 97; Resp 16; Temp 97.4; Pulse Ox 97% ; Weight 54.88 kg; Height 5 ft. sv 1 in. (154.94 cm); Pain 8/10; 17:58 BP 116 / 64; Pulse 76; Resp 16 S; Pulse Ox 96% on R/A; jl7 18:30 BP 97 / 51; Pulse 72; Resp 16 S; Pulse Ox 95% on R/A; Pain 7/10; jl7 19:09 BP 107 / 60; Pulse 67; Resp 19 S; Temp 98.3(O); Pulse Ox 96% on R/A; cc3 20:45 BP 120 / 65; Pulse 67; Resp 19 S; Pulse Ox 99% on R/A; cc3 21:50 BP 121 / 71; Pulse 71; Resp 20 S; Pulse Ox 100% on R/A; cc3 16:19 Body Mass Index 22.86 (54.88 kg, 154.94 cm) sv MDM: 16:28 Patient medically screened. [facility] 16:58 Data reviewed: vital signs, nurses notes, lab test result(s), EKG, radiologic studies, [facility] CT scan, plain films. 04/07 16:55 Order name: Basic Metabolic Panel; Complete Time: 18:42 [facility] 04/07 16:55 Order name: CBC with Diff [facility] 04/07 16:55 Order name: LFT's; Complete Time: 18:42 [facility] 04/07 16:55 Order name: Magnesium; Complete Time: 18:42 [facility] 04/07 16:55 Order name: NT PRO-BNP; Complete Time: 18:42 [facility] 04/07 16:55 Order name: PT-INR; Complete Time: 18:42 [facility] 04/07 16:55 Order name: Troponin (emerg Dept Use Only); Complete Time: 18:42 [facility] 04/07 16:55 Order name: Urine Culture [facility] 04/07 18:09 Order name: Urine Dipstick--Ancillary (enter results) 04/07 18:09 Order name: Urine Dipstick-Ancillary EDNE 04/07 18:45 Order name: Depakote [facility] 04/07 20:37 Order name: Comprehensive Metabolic Panel EDMS 04/07 20:37 Order name: Comprehensive Metabolic Panel EDMS 04/07 20:37 Order name: Magnesium EDMS 04/07 16:55 Order name: XRAY Chest (1 view); Complete Time: 18:16 [facility] 04/07 16:55 Order name: CT Head Brain wo Cont; Complete Time: 18:16 [facility] 04/07 20:37 Order name: Magnesium EDMS 04/07 20:37 Order name: Phosphorus EDMS 04/07 20:37 Order name: Phosphorus EDMS 04/07 20:37 Order name: Protime (+INR) EDMS 04/07 20:37 Order name: Protime (+INR) EDMS 04/07 20:38 Order name: CBC with Automated Diff EDMS 04/07 20:38 Order name: CBC with Automated Diff EDMS 04/07 20:38 Order name: PTT, Activated Partial Thromb EDMS 04/07 20:38 Order name: PTT, Activated Partial Thromb EDMS 04/07 21:28 Order name: Manual Differential EDMS 04/07 16:55 Order name: EKG; Complete Time: 16:56 [facility] 04/07 16:55 Order name: Cardiac monitoring; Complete Time: 18:09 [facility] 04/07 16:55 Order name: EKG - Nurse/Tech; Complete Time: 18:09 [facility] 04/07 16:55 Order name: IV Saline Lock; Complete Time: 18:09 [facility] 04/07 16:55 Order name: Labs collected and sent; Complete Time: 18:09 [facility] 04/07 16:55 Order name: O2 Per Protocol; Complete Time: 18:09 [facility] 04/07 16:55 Order name: O2 Sat Monitoring; Complete Time: 18:09 [facility] 04/07 16:55 Order name: Urine Dipstick-Ancillary (obtain specimen); Complete Time: 17:48 [facility] 04/07 20:38 Order name: CONS Physician Consult EDMS Administered Medications: 17:30 Drug: NS 0.9% 1000 ml Route: IV; Rate: 125 ml/hr; Site: right hand; jl7 17:31 Drug: Zofran 4 mg Route: IVP; Site: right hand; jl7 18:30 Follow up: Response: No adverse reaction jl7 17:36 Drug: fentaNYL (PF) 25 mcg Route: IVP; Site: right hand; jl7 18:30 Follow up: Response: No adverse reaction; Pain is decreased jl7 17:40 Drug: Decadron - Dexamethasone 10 mg Route: IVP; Site: right hand; jl7 18:30 Follow up: Response: No adverse reaction; Pain is decreased jl7 18:27 Drug: TORadol 30 mg Route: IVP; Site: right hand; jl7 19:36 Follow up: Response: No adverse reaction cc3 19:15 Drug: Aspirin 162 mg Route: PO; cc3 19:35 Follow up: Response: No adverse reaction cc3 21:30 Not Given (not needed so not given as per ROB Rosenberg): fentaNYL (PF) 25 mcg IVP oncecc3 Disposition: 04/07/18 18:59 Hospitalization ordered by Jonel Juárez for Inpatient Admission. Preliminary diagnosis are Headache, Weakness - Elevated Troponin, Abnormal brain scan - NO CHANGES , MENINGIOMA. - Bed requested for Telemetry/MedSurg (Inpatient). - Status is Inpatient Admission. cc3 - Condition is Fair. - Problem is new. - Symptoms have improved. UTI on Admission? No Signatures: Dispatcher [employer] Yoly Alberts RN RN sv Anderson, Corey, MD MD cha Garcia, Cindy, RN RN cg Leal, Jahala, RN RN jl7 Cordel, Charlene cc3 Corrections: (The following items were deleted from the chart) 18:54 18:22 04/07/2018 18:22 Discharged to Home. Impression: Headache. Condition is Stable. [facility] Discharge Instructions: General Headache Without Cause, General Headache Without Cause, [id number]. Prescriptions for Motrin IB 200 mg Oral Tablet - take 2 tablet by ORAL route every 6 hours As needed as needed with food; 20 tablet. and Forms are Medication Reconciliation Form, Thank You Letter, Antibiotic Education, Prescription Opioid Use. Follow up: Private Physician; When: 2 - 3 days; Reason: Recheck today's complaints, Continuance of care, Re-evaluation by your physician. Follow up: Rufus Nix; When: 2 - 3 days; Reason: Recheck today's complaints, Continuance of care, Re-evaluation by your physician. Problem is new. Symptoms have improved. [facility] 21:30 18:59 Hospitalization Ordered by Jonel Juárez MD for Inpatient Admission. Preliminary cg diagnosis is Headache; Weakness - Elevated Troponin; Abnormal brain scan - NO CHANGES , MENINGIOMA. Bed requested for Telemetry/MedSurg (Inpatient). Status is Inpatient Admission. Condition is Fair. Problem is new. Symptoms have improved. UTI on Admission? No. [facility] 22:09 21:30 04/07/2018 18:59 Hospitalization Ordered by Jonel Juárez MD for Inpatient cc3 Admission. Preliminary diagnosis is Headache; Weakness - Elevated Troponin; Abnormal brain scan - NO CHANGES , MENINGIOMA. Bed requested for Telemetry/MedSurg (Inpatient). Status is Inpatient Admission. Condition is Fair. Problem is new. Symptoms have improved. UTI on Admission? No. cg
[2018-04-07 18:25] LABS: ALT/SGPT 41 U/L (12-78); AST/SGOT 21 U/L (15-37); Albumin 2.7 g/dL (3.4-5.0); Alkaline Phosphatase 87 U/L (45-117); BUN Blood Urea Nitrogen 53 mg/dL (7-18); Bicarbonate 26 mmol/L (21-32); Bilirubin Direct < 0.1 mg/dL (0-0.2); Bilirubin Total 0.4 mg/dL (0.2-1.0); Glucose Level 143 mg/dL (74-106); Magnesium 2.1 mg/dL (1.8-2.4); NT PRO-BNP 2009 pg/mL (<125); Potassium 5.1 mmol/L (3.5-5.1); Protein, Total 5.7 g/dL (6.4-8.2); Sodium Level 135 mmol/L (136-145); Troponin (Emerg Dept Use Only) 0.05 ng/mL (0.0-0.045)
[2018-04-07] MEDS ORDERED: KETOROLAC 30 MG/ML INJ ONE (18:35)
[2018-04-07] MEDS ORDERED: ASPIRIN 81 MG CHEWABLE TABLET ONE (19:24)
[2018-04-07 20:19] LABS: Urine Blood NEGATIVE (NEG); Urine Glucose NEGATIVE (NEG); Urine Protein NEGATIVE (NEG); Urine pH 6.5 (5.0-7.0)
[2018-04-07] MEDS ORDERED: ONDANSETRON 4 MG/2 ML VIAL IV PRN (20:31)
[2018-04-07] MEDS ORDERED: TIZANIDINE 4 MG TABLET PO PRN (20:36)
--- NOTE | 2018-04-07 20:48 | EKG ---
Test Date: 2018-04-07 Test Time: 17:15:44 Undercoater: CLIVE MEASUREMENT RESULTS: Intervals: Rate: 82 LA: 104 QRSD: 74 QT: 354 QTc: 413 Shipman: P: 48 LA: 104 QRS: 44 T: 80 INTERPRETIVE STATEMENTS: Sinus rhythm with short LA Nonspecific ST and T wave abnormality Abnormal ECG Compared to ECG 11/20/2017 17:50:02 ST (T wave) deviation now present Sinus bradycardia no longer present Electronically Signed On 04-07-18 20:47:33 TRANSFER IRON OPERATOR by Tho Joseph
[2018-04-07] MEDS ORDERED: TRAZODONE 50 MG TABLET PO SCH (21:00)
[2018-04-07 21:28] LABS: Blood Morphology Comment NOT SEEN (NOT SEEN); Platelet Estimate ADEQ
[2018-04-07] MEDS: DIVALPROEX ER 250 MG TAB PO SCH (22:34)
[2018-04-07] MEDS: NA CHLORIDE 0.9% 1,000 ML IV SCH (22:35)
[2018-04-07] MEDS: MEMANTINE HCL 10 MG TABLET PO SCH (22:35)
[2018-04-08 01:20] VITALS: BMI 21.8
[2018-04-08] MEDS: ACETAMINOPHEN 500 MG TAB PO PRN (01:48)
[2018-04-08] MEDS: TRAMADOL HCL 50 MG TAB PO PRN (03:48)
--- NOTE | 2018-04-08 06:00 | P.HP ---
Date of Service: 04/07/18 Dictation ID # [id number]
[2018-04-08 06:04] LABS: Protime INR 0.9
[2018-04-08 06:11] LABS: Absolute Lymphocytes (CBC) 1.6 K/uL (0.7-4.9); Absolute Monocytes 0.2 K/uL (0.1-1.3); Absolute Neutrophil 8.2 K/uL (1.8-8.0); Eosinophils % 0.1 % (0-4.4); Hematocrit 35.2 % (36.0-45.0); Lymphocytes % 15.4 % (15.3-44.8); RBC Red Blood Cell Count 3.41 M/uL (3.86-4.86)
[2018-04-08 06:17] LABS: ALT/SGPT 38 U/L (12-78); AST/SGOT 24 U/L (15-37); Albumin 2.6 g/dL (3.4-5.0); Alkaline Phosphatase 69 U/L (45-117); BUN Blood Urea Nitrogen 41 mg/dL (7-18); Bicarbonate 29 mmol/L (21-32); Bilirubin Total 0.4 mg/dL (0.2-1.0); Glucose Level 109 mg/dL (74-106); Magnesium 2.1 mg/dL (1.8-2.4); Phosphorus 3.5 mg/dL (2.5-4.9); Potassium 5.5 mmol/L (3.5-5.1); Protein, Total 5.3 g/dL (6.4-8.2); Sodium Level 136 mmol/L (136-145)
[2018-04-08 08:41] LABS: C-Reactive Protein < 2.90 mg/L (<3.00); Folic Acid, (Folate) > 20.0 ng/mL (3.1-17.5); Thyroid Stimulating Hormone 0.297 uIU/mL (0.360-3.740); Troponin I 0.04 ng/mL (0.0-0.045)
[2018-04-08] MEDS: HOME MED 1 EA UNK (Magnesium Oxide [Magnesium] 250 MG) PO SCH (09:00)
[2018-04-08] MEDS: ENOXAPARIN 40 MG/0.4 ML SQ SCH (09:23)
[2018-04-08] MEDS: VITAMIN D 5,000 UNIT CAP PO SCH (09:24)
[2018-04-08] MEDS: ATENOLOL 25 MG TAB PO SCH (09:24)
[2018-04-08] MEDS: DIVALPROEX ER 250 MG TAB PO SCH ×3 (09:24→20:49)
[2018-04-08] MEDS: MEMANTINE HCL 10 MG TABLET PO SCH ×2 (09:24→20:49)
[2018-04-08] MEDS: NA CHLORIDE 0.9% 1,000 ML IV SCH (11:47)
--- NOTE | 2018-04-08 18:34 | HP ---
Date of Admission: 04/07/2018 Reason For Admission: The patient with persistent headache and generalized weakness. History Of Present Illness: This is a 72-year-old female, who came into the hospital with a diagnosi s of meningioma. This was diagnosed about a year ago. The patient states her symptoms have been gra dually getting worse. Over the last week or 2, she has noticed she has had a significant decrease in her strength. She has a headache, and she has generalized weakness. She came to the hospital for f urther evaluation. In the emergency room, the patient had a CT scan, which revealed a meningioma, bu t no other abnormalities. There was no significant change in the size of the meningioma. The patien t does have some minimal weakness, restraints, is probably a 4/5 diffusely. Reviewed her home medications and did not really see anything that stood out. She is on Depakote and should get her levels checked as well. She takes trazodone as well as dexamethasone. She is not re ally able to tell me exactly what the dexamethasone is for. She could have myopathy secondary to her steroid use. She could also have polymyalgia rheumatica. We will have to review her chart a little bit more extensively. Review of Systems: A 10-point review of systems is otherwise unremarkable. Past Medical History: Meningioma, hypothyroidism, hypertension, chronic headaches, sinus allergic rh initis. Past Surgical History: Throat surgery, back surgery, cholecystectomy, cellulitis of the leg. Allergies: CODEINE AND SULFA WELL WASP BITES. Home Medications: Vitamin B12, acetaminophen, melatonin, Protonix, tumeric, dexamethasone, triamtere ne, hydrochlorothiazide, magnesium oxide, Namenda, Depakote, Zanaflex. Family History: Noncontributory. Social History: She does not smoke, nor does she drink or do any drugs. Physical Examination: Vital Signs: Revealed a temperature of 97.4, heart rate 90, respirations 16, blood pressure 130/60, saturating 97% on room air. Pain scale 7/10. General: The patient lying in bed, comfortable, no distress. Awake, alert, oriented to person, plac e, time. HEENT: Normocephalic, atraumatic. Pupils are equal and reactive to light. Extraocular muscles inta ct. There is no JVP. No bruits. No thyromegaly. TMs normal. Cardiovascular: Regular rate and rhythm. No murmur rubs or gallops. Lungs: Clear bilaterally. Abdomen: Soft, nontender, nondistended. Bowel sounds positive. Extremities: No clubbing, no cyanosis, no edema. Neurologic: Cranial nerves 2-12 are intact. Motor is 4/5 in all 4 extremities. Sensory exam is int act light touch. Skin: No deformities or lymph nodes. Lymphatics: No significant lymphadenopathy. Laboratory Data: Have been reviewed. Assessment: 1.The patient with myopathy. 2.The patient with headache. 3.The patient with a history of meningioma. 4.The patient with hypothyroidism. 5.Hypertension. 6.Macrocytosis. 7.Uremia. 8.Hypoalbuminemia. Plan: At this time, is to go ahead and check multiple lab studies including thyroid, cortisol, B12, folate, sedimentation rate, CRP, and electrolyte levels. The patient may have polymyalgia rheumatica , however, the steroids should be benefitting it and should be make it worse. She has been on steroi d taken because of the meningioma. 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 Now she may need a muscle bi opsy. We will get physical therapy evaluation while in the hospital as well. She also takes Depakot e and wanted to check a Depakote level as well. Monitor hemodynamics closely on that, monitor her ph ysical therapy as well. Hopefully, we will be able to get to the bottom of her symptoms prior to dis charge. It could be related to the meningioma, however, it has not grown in size, so I will be surpr ised if this is the cause, keep her on GI and DVT prophylaxis. DENNIS Voice ID: [id number]
[2018-04-08] MEDS: SERTRALINE HCL 100 MG TAB PO SCH (20:48)
[2018-04-09] MEDS: ACETAMINOPHEN 500 MG TAB PO PRN ×2 (00:29→13:08)
[2018-04-09] MEDS: NA CHLORIDE 0.9% 1,000 ML IV SCH ×2 (00:30→13:08)
--- NOTE | 2018-04-09 01:41 | CON ---
Date of Consultation: 04/08/2018 Time: 1956. Reason: Headache, meningioma. Interval History: A 72-year-old lady known to myself with a history of frontal falcine meningioma, s chuck by neuro surgery, actually was going to have a craniotomy, but had some cardiac complications whi colton the craniotomy was being initiated and therefore not going to have surgery. Has really complained of headaches since the diagnosis. She has had very extensive investigation as there is also some me mazin complaints. EEG demonstrated some frontal slowing consistent with a known frontal meningioma. PET scan, no evidence of dementia with regard to the memory complaints. We have had her on Namenda a nd Depakote, which has controlled the headaches reasonably well, but was admitted at [facility] a few weeks ago with urinary tract infection and the Depakote level was elevated, so it has decrease d to twice daily. Upon discharge, she went home and complained to her of intractable severe headache, so prominent that he brought her to the emergency department here for further evaluation. Evaluation in the emergency department was largely unrevealing. Depakote level was 56. Sedimentatio n rate normal. B12 fully normal. TSH slightly low 0.297. CBC normal. Depakote to 3 times daily no w. She is not complaining of headache, but I think will end up having issues of continuing t.i.d. do sing, the level will tend to run high and then every time she ends up in the hospital for a different issue. It will be decreased, so I think we may have to make some changes with regard to her prevent ative medications. She does not voice any current complaints. Consultation was requested. Past Medical History: Headaches, meningioma as alluded to, hypothyroidism, hypertension. Allergies: CODEINE AND SULFA. Family History: No family history of headaches. Medications: B12, potassium D3, acetaminophen, melatonin, pantoprazole, turmeric, Decadron 0.5 twice daily, triamterene HCTZ, magnesium, Namenda, Depakote, tizanidine. Social History: . Does not smoke. Normally independent with basic activities of daily andrew gKaleigh Review of Systems: General: Good health. Eyes: Denies. Ears, Nose, Throat: Negative. Cardiovascular: Hypertension. Pulmonary: Negative. GI: Negative. : Negative. Musculoskeletal: Negative, although she was felt to be generally weak by the admitting physician. Psychiatric: Negative. Endocrine: Hypothyroidism. Hematologic: Negative. Physical Examination: Vital Signs: 97.6, 58, 19, 137/60. General: Pleasant lady, lying in bed, in no distress. Awake, alert, oriented. HEENT: Pupils reactive. Ocular motion full. Panda full. Facial strength, sensation normal. Tong ue protrudes evenly. Soft palate elevates symmetrically bilaterally. Extremities: Strength full. Sensation intact. Reflexes 1/4. Toes are downgoing. Neuro: Cerebellar exam demonstrates no ataxia. Impression: Headache and meningioma. Plan: We will decrease the Depakote back to twice daily. Brain MRI with and without contrast. The patient is allergic to sulfa. We will check a CPK given questionable steroid myopathy on admission. Continue the Decadron as the last MRI did have some associated cerebral edema around the lesion. MR I will be helpful in deciding what to do with that medication i.e. the Decadron. Try adding SSRI for better headache prevention. We will continue to follow with you. NEENA/JENELLE Voice ID: [id number] Report ID: [id number]
--- NOTE | 2018-04-09 08:39 | RAD REPORT ---
EXAM DESCRIPTION: MRI - Brain W/Wo Cont - 04/08/2018 10:03 pm CLINICAL HISTORY: memingioma Frontal headaches, drowsiness. History of brain tumor. COMPARISON: Head Brain Wo Cont dated 04/07/2018 TECHNIQUE: Multi-sequence, multiplanar MR imaging of the brain was performed with contrast. 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 No additional enhancing brain lesions identified. No intracranial hemorr yenny, hydrocephalus or extra-axial fluid collection.Mild generalized brain atrophy with periventricul ar deep white matter chronic microvascular ischemic changes present. DWI is negative for acute CVA. Mastoid air cells and paranasal sinuses are clear. Post-contrast images show no additional areas of abnormal enhancement to suggest additional tumor or infection. 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 No additional acute or aggressive intracranial abnormality.
[2018-04-09] MEDS: ENOXAPARIN 40 MG/0.4 ML SQ SCH (08:51)
[2018-04-09] MEDS: MEMANTINE HCL 10 MG TABLET PO SCH ×2 (08:51→21:10)
[2018-04-09] MEDS: ATENOLOL 25 MG TAB PO SCH (08:52)
[2018-04-09] MEDS: VITAMIN D 5,000 UNIT CAP PO SCH (08:52)
[2018-04-09] MEDS: DIVALPROEX ER 250 MG TAB PO SCH ×2 (08:52→21:10)
[2018-04-09] MEDS: HOME MED 1 EA UNK (Magnesium Oxide [Magnesium] 250 MG) PO SCH (08:53)
--- NOTE | 2018-04-09 15:31 | P.PN ---
Subjective Date of Service: 04/08/18 Chief Complaint: Headache Subjective: No new changes Patient seen and examined at bedside. No family at bedside. Chart reviewed and case discussed with nursing staff. Continues to complain of headache, that is unchanged from admission Denies any other symptoms at this time Review of Systems 10-point ROS is otherwise unremarkable Physical Examination - Vital Signs Temperature: 97.5 F Blood Pressure: 120/60 Pulse: 70 Respirations: 20 Pulse Ox (%): 99 - Physical Exam General: Alert, In no apparent distress, Oriented x3, Other (Ill-appearing, elderly) HEENT: Atraumatic, PERRLA, EOMI Neck: Supple, JVD not distended Respiratory: Clear to auscultation bilaterally, Normal air movement Cardiovascular: Regular rate/rhythm, Normal S1 S2 Gastrointestinal: Normal bowel sounds, No tenderness Musculoskeletal: No tenderness Integumentary: No rashes Neurological: Normal speech, Normal tone, Normal affect - Studies Microbiology Data (last 24 hrs): 04/07/18 17:49 Clean Catch Urine Freeman Count - Final 04/07/18 17:49 Clean Catch Urine - Final No growth. Assessment And Plan - Current Problems (Diagnosis) (1) Headache Current Visit: Yes Status: Acute (2) History of meningioma Current Visit: Yes Status: Acute (3) Hypertension Current Visit: Yes Status: Acute (4) Hypoalbuminemia Current Visit: Yes Status: Acute (5) Hypothyroid Current Visit: Yes Status: Acute - Plan This is a 72-year-old female with: Headache (Acute) R51 History of meningioma (Acute) Z86.018 Neurology consulted Pain control Hypertension (Acute) I10 Stable, continue home medications Hypoalbuminemia (Acute) E88.09 Hypothyroid (Acute) E03.9 Stable, continue home medications DVT prophylaxis: Lovenox GI prophylaxis: None Diet: Heart healthy Disposition: Pending symptomatic improvement and neurology evaluation
[2018-04-09] MEDS: TRAMADOL HCL 50 MG TAB PO PRN (15:33)
--- NOTE | 2018-04-09 15:40 | P.PN ---
Subjective Date of Service: 04/09/18 Chief Complaint: Headache Subjective: No C/O voiced Patient seen and examined at bedside. No family at bedside. Chart reviewed and case discussed with nursing staff. Continues to complain of headache, that is unchanged from admission Denies any other symptoms at this time Review of Systems 10-point ROS is otherwise unremarkable Physical Examination - Vital Signs Temperature: 97.5 F Blood Pressure: 120/60 Pulse: 70 Respirations: 20 Pulse Ox (%): 99 - Physical Exam General: Alert, In no apparent distress, Oriented x3 HEENT: Atraumatic, PERRLA, EOMI Neck: Supple, JVD not distended Respiratory: Clear to auscultation bilaterally, Normal air movement Cardiovascular: Regular rate/rhythm, Normal S1 S2 Gastrointestinal: Normal bowel sounds, No tenderness Musculoskeletal: No tenderness Integumentary: No rashes Neurological: Normal speech, Normal tone, Normal affect Lymphatics: No axilla or inguinal lymphadenopathy - Studies Microbiology Data (last 24 hrs): 04/07/18 17:49 Clean Catch Urine Sheridan Count - Final 04/07/18 17:49 Clean Catch Urine - Final No growth. Assessment And Plan - Current Problems (Diagnosis) (1) Headache Current Visit: Yes Status: Acute (2) History of meningioma Current Visit: Yes Status: Acute (3) Hypertension Current Visit: Yes Status: Acute (4) Hypoalbuminemia Current Visit: Yes Status: Acute (5) Hypothyroid Current Visit: Yes Status: Acute - Plan This is a 72-year-old female with: Headache (Acute) R51 History of meningioma (Acute) Z86.018 Neurology consulted, recommendations appreciated Sertraline added for headache control. Repeat MRI ordered, pending Continue current medications, including steroids. Hypertension (Acute) I10 Stable, continue home medications Hypoalbuminemia (Acute) E88.09 Hypothyroid (Acute) E03.9 Stable, continue home medications DVT prophylaxis: Lovenox GI prophylaxis: None Diet: Heart healthy Disposition: Pending symptomatic improvement
[2018-04-09] MEDS ORDERED: TRAMADOL HCL 50 MG TAB PO PRN (17:40)
[2018-04-09] MEDS ORDERED: TIZANIDINE 4 MG TABLET PO PRN (20:53)
[2018-04-09] MEDS: SERTRALINE HCL 100 MG TAB PO SCH (21:11)
--- NOTE | 2018-04-10 01:30 | PN ---
Date of Progress Note: 04/09/2018 Time: 2039 Reason: Meningioma, headaches. Interval History: Brain MRI demonstrates the known meningioma, anterior olfactory groove. It is simone rly large. Fortunately, there is no surrounding cerebral edema. I think we can begin tapering the D ecadron to off. Had Ultram earlier today, not complaining of headache currently. We have added the sertraline. I do not think the Depakote in the long run is going to hold her, so we want to wean johnnie t to off. Meningioma is 25 x 22 x 21 mm. The patient has become progressively deconditioned. I thi nk she would benefit from [facility] placement. The patient has slow nikky on the gait with p hysical therapy. Physical Examination: Vital Signs: 97.7, 71, 20, 121/58. General: She is awake, alert, oriented. HEENT: Pupils reactive. Ocular motion full. Panda full. Neurologic: Strength is full. Sensation intact. Reflexes symmetric. Gait is not tested. One would anticipate somewhat apraxic gait given the frontal lobe meningioma. Impression: Meningioma, headaches. Plan: There is really no need to continue the dexamethasone as outpatient, so she is not on it now. I just would not restart. There is no evidence of cerebral edema. We will decrease the Depakote to twice daily as alluded to. Continue the sertraline and decrease the strength of the tizanidine that is going to prove to be very sedating as well to 2 mg p.o. q.12 p.r.n. trying to wean that to the lowest possible moving forward. We will continue to follow with you. NEENA/JENELLE Voice ID: [id number] Report ID: [id number]
[2018-04-10] MEDS: NA CHLORIDE 0.9% 1,000 ML IV SCH (02:20)
[2018-04-10] MEDS: HOME MED 1 EA UNK (Magnesium Oxide [Magnesium] 250 MG) PO SCH (09:00)
[2018-04-10] MEDS: ENOXAPARIN 40 MG/0.4 ML SQ SCH (09:16)
[2018-04-10] MEDS: ATENOLOL 25 MG TAB PO SCH (09:17)
[2018-04-10] MEDS: DIVALPROEX ER 250 MG TAB PO SCH (09:17)
[2018-04-10] MEDS: MEMANTINE HCL 10 MG TABLET PO SCH (09:17)
[2018-04-10] MEDS: VITAMIN D 5,000 UNIT CAP PO SCH (09:17)
[2018-04-10 10:18] VITALS: O2SAT 93
--- NOTE | 2018-04-10 11:22 | P.PN ---
Subjective Date of Service: 04/10/18 Chief Complaint: Headache Subjective: No C/O voiced, Improving Patient seen and examined at bedside. No family at bedside. Chart reviewed and case discussed with nursing staff. Continues to complain of headache, that is unchanged from admission Denies any other symptoms at this time. Seems to be more alert and awake this morning. Resting comfortably in bed, visiting with visitors at this time. Review of Systems 10-point ROS is otherwise unremarkable Physical Examination - Vital Signs Temperature: 97 F Blood Pressure: 115/67 Pulse: 69 Respirations: 20 Pulse Ox (%): 95 - Physical Exam General: Alert, In no apparent distress, Oriented x3 HEENT: Atraumatic, PERRLA, EOMI Neck: Supple, JVD not distended Respiratory: Clear to auscultation bilaterally, Normal air movement Cardiovascular: Regular rate/rhythm, Normal S1 S2 Gastrointestinal: Normal bowel sounds, No tenderness Musculoskeletal: No tenderness Integumentary: No rashes Neurological: Normal speech, Normal tone, Normal affect Lymphatics: No axilla or inguinal lymphadenopathy - Studies Microbiology Data (last 24 hrs): 04/07/18 17:49 Clean Catch Urine [place] Count - Final 04/07/18 17:49 Clean Catch Urine - Final No growth. Assessment And Plan - Current Problems (Diagnosis) (1) Headache Current Visit: Yes Status: Acute (2) History of meningioma Current Visit: Yes Status: Acute (3) Hypertension Current Visit: Yes Status: Acute (4) Hypoalbuminemia Current Visit: Yes Status: Acute (5) Hypothyroid Current Visit: Yes Status: Acute - Plan This is a 72-year-old female with: Headache (Acute) R51 History of meningioma (Acute) Z86.018 Neurology, Dr. Nix, consulted, recommendations appreciated Sertraline added for headache control. MRI ordered, seems to be unchanged from prior, no is edema noted at this time. Per neurology, discontinue Decadron. Continue current medications Hypertension (Acute) I10 Stable, continue home medications Hypoalbuminemia (Acute) E88.09 Hypothyroid (Acute) E03.9 Stable, continue home medications DVT prophylaxis: Lovenox GI prophylaxis: None Diet: Heart healthy Disposition: Pending symptomatic improvement. Social work involved for fdc facility placement, pending.
[2018-04-10 15:08] VITALS: BP 111/57; TEMP 97.9
--- NOTE | 2018-04-17 10:05 | P.SSS ---
Patient History Date of Service: 04/10/18 Reason for admission: Headache History of Present Illness: This is a 72-year-old female, who came into the hospital with a diagnosis of meningioma. This was diagnosed about a year ago. The patient states her symptoms have been gradually getting worse. Over the last week or 2, she has noticed she has had a significant decrease in her strength. She has a headache , and she has generalized weakness. She came to the hospital for further evaluation. In the emergency room, the patient had a CT scan, which revealed a meningioma, but no other abnormalities. There was no significant change in the size of the meningioma. The patient does have some minimal weakness, restraints , is probably a 4/5 diffusely. Reviewed her home medications and did not really see anything that stood out. She is on Depakote and should get her levels checked as well. She takes trazodone as well as dexamethasone. She is not really able to tell me exactly what the dexamethasone is for. She could have myopathy secondary to her steroid use. She could also have polymyalgia rheumatica. We will have to review her chart a little bit more extensively. Allergies codeine [Codeine] Allergy (Unknown, Verified 04/07/18 22:15) Itching/Hives/Rash Sulfa (Sulfonamide Antibiotics) Allergy (Unknown, Verified 04/07/18 22:15) Itching/Hives/Rash Wasps Allergy (Uncoded 04/07/18 22:15) Itching/Hives/Rash Home Medications: Divalproex Sodium [Depakote ER] 500 mg PO BID 11/20/17 Magnesium Oxide [Magnesium] 250 mg PO DAILY 11/20/17 Memantine HCl 10 mg PO BID 11/20/17 Turmeric Root Extract [Turmeric] 500 mg PO DAILY 11/20/17 Acetaminophen [Tylenol Extra Strength] 1 tab PO Q4H PRN 04/07/18 Cyanocobalamin (Vitamin B-12) [Vitamin B-12] 1 cap PO DAILY 04/07/18 Melatonin 1 tab PO BEDTIME PRN PRN 04/07/18 Mv-Mn/Iron/FA/Herbal Cmplx#190 [Vitamin D3 Complete Caplet] 125 mcg PO DAILY Pantoprazole Sodium 1 tab PO DAILY 04/07/18 Potassium 1 tab PO DAILY 01/28/19 Triamterene/Hydrochlorothiazid [Triamterene-Hctz 37.5-25 mg Tb] 1 tab PO DAILY 04/07/18 Sertraline [Zoloft*] 50 mg PO BEDTIME #30 tab 04/10/18 Tizanidine HCl 2 mg PO BID PRN #30 tablet 04/10/18 - Past Medical/Surgical History Has patient received pneumonia vaccine in the past: Yes Diabetic: No -: brain tumor - benign -: hypothyroidism -: hypertension -: headaches -: sinus problems -: Throat Surgery -: Back Surgeries -: ngoc -: attempted brain tumor removal without success -: left leg cellulitis sx (6-7 yrs ago) - Family History Father -: Heart disease Sister -: Heart disease Brother -: Lung disease, Cancer, Kidney disease - Social History Smoking Status: Never smoker Alcohol use: No CD- Drugs: No Caffeine use: Yes Place of Residence: Home Review of Systems 10-point ROS is otherwise unremarkable Physical Examination - Vital Signs Temperature: 97.9 F Blood Pressure: 111/57 Pulse: 71 Respirations: 20 Pulse Ox (%): 99 - Physical Exam General: Alert, In no apparent distress, Oriented x3, Cachectic HEENT: Atraumatic, PERRLA, Mucous membr. moist/pink, EOMI, Sclerae nonicteric Neck: Supple, 2+ carotid pulse no bruit, No LAD, Without JVD or thyroid abnormality Respiratory: Clear to auscultation bilaterally, Normal air movement Cardiovascular: Regular rate/rhythm, Normal S1 S2 Gastrointestinal: Normal bowel sounds, No tenderness Musculoskeletal: No tenderness Integumentary: No rashes Neurological: Normal gait, Normal speech, Normal strength at 5/5 x4 extr, Normal tone, Normal affect Lymphatics: No axilla or inguinal lymphadenopathy - Diagnosis (Problem(s)) (1) Headache Status: Acute (2) History of meningioma Status: Acute (3) Hypertension Status: Acute (4) Hypoalbuminemia Status: Acute (5) Hypothyroid Status: Acute Treatment Summary: Headache (Acute) R51 History of meningioma (Acute) Z86.018 Neurology, Dr. Nix, was consulted. Sertraline added for headache control. Tizanidine dosage was decreased. MRI ordered, seems to be unchanged from prior, no is edema noted at this time. She was cleared for discharge by neurology. She remained stable otherwise throughout the stay. She was discharged to a SNF, [facility]. - Disposition Discharge Date: 04/10/18 Disposition: TRANSFER TO SNF - REHAB Condition: GOOD Consultations: Neurology, Dr. Nix Patient Discharge Instructions: Please follow up with your primary care physician in 1 week. Please follow up with Dr. Nix in 2-3 weeks. Return to the Emergency room for worsening symptoms. Diet: AHA Activity: Ad colleen Time Spent Managing Pts Care (In Minutes): 55
== END 2018-04-10 17:56 ==
LOC: ER 16:13 → ERHOLD 20:52 → 2ND 21:57
PROVIDERS: ADMIT Family Medicine; ATTEND Hospitalist
DX: R51 Headache (principal); D32.0 Benign neoplasm of cerebral meninges; E03.9 Hypothyroidism, unspecified; I10 Essential (primary) hypertension; E88.09 Other disorders of plasma-protein metabolism, not elsewhere classified; Z91.038 Other insect allergy status; Z88.2 Allergy status to sulfonamides
CPT/HCPCS: 36415 ×3; 51702; 70450; 70553; 71045; 80048; 80053; 80076; 80164 ×2; 81003; 82533; 82550; 82607; 82746; 83735 ×2; 83880; 84100; 84132; 84439; 84443; 84484 ×2; 85025 ×2; 85610 ×2; 85652; 85730; 86140; 87088; 93005; 96374; 96375; 97116 ×2; 97163; 97530 ×2; 99285; A9577; G0378 ×2; J1650 ×3; J2405; J3010; J7030 ×6; 87086